=== PATIENT | female | born 1960 | race Caucasian/White ===

== ENCOUNTER 2017-04-09 09:18 | Emergency (ER) | payer OTHER, BC ==
[~2017-04-09] VITALS: Ht 154.9 cm; Wt 58.2 kg
[~2017-04-09 09:18] MED LIST: CALC500C70 PO; CHOL100010 PO
[2017-04-09 09:23] VITALS: TEMP 36.8; Ht 154.9 cm; Wt 58.2 kg
[2017-04-09] MEDS ORDERED: CHOL1000 PO (09:59)
--- NOTE | 2017-04-09 10:22 | DIAGNOSTIC IMAGING REPORT ---
L-SPINE MIN 4 VIEWS ROUTINE CLINICAL HISTORY: Back pain COMPARISON STUDY: 09/20/2007 FINDINGS: There are postsurgical changes of an L4-5 discectomy and posterior pedicle screw fixation. There are no acute fractures or subluxations. There are minor degenerative changes present. No destructive lesions are evident. IMPRESSION: Postsurgical changes at the L4-5 level. No acute fractures subluxations or destructive lesions are visualized. Electronically signed by: Yeison Pérez M.D. 04/09/2017 10:21 AM Dictated Date/Time: 04/09/2017 10:20 AM
[2017-04-09 10:41] VITALS: BP 145/70; PULSE 74; O2SAT 98
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
== END 2017-04-09 10:42 | disposition home or self-care (01) ==
LOC: C.EDB 09:20
DX: M54.5 Low back pain (principal); V43.52XA Car driver injured in collision with other type car in traffic accident, initial encounter; M48.06 Spinal stenosis, lumbar region; Z98.890 Other specified postprocedural states; Z88.8 Allergy status to other drugs, medicaments and biological substances; Z91.09 Other allergy status, other than to drugs and biological substances

== ENCOUNTER → 2017-07-17 | Outpatient (CLI) | payer BC ==
[~2017-07-17] MED LIST changes: +CHOL1000 PO; -CHOL100010 PO
--- NOTE | 2017-07-17 14:31 | MAMMOGRAPHY REPORT ---
BILATERAL DIGITAL SCREENING MAMMOGRAM TOMOSYNTHESIS WITH CAD: 07/17/2017 CLINICAL HISTORY: Routine screening. TECHNIQUE: Breast tomosynthesis in addition to standard 2D mammography was performed. Current study was also evaluated with a Computer Aided Detection (CAD) system. COMPARISON: Comparison is made to exams dated: 07/15/2016 mammogram, 07/10/2015 mammogram, 07/07/2014 ma mmogram, 07/06/2013 mammogram, 07/05/2012 mammogram, and 07/01/2011 mammogram - [facility] BREAST COMPOSITION: The tissue of both breasts is heterogeneously dense, which may obscure small mas ses. FINDINGS: No suspicious masses, calcifications, or areas of architectural distortion are noted in ei ther breast. There has been no significant interval change compared to prior exams. IMPRESSION: ACR BI-RADS CATEGORY 1: NEGATIVE There is no mammographic evidence of malignancy. A 1 year screening mammogram is recommended. The pa tient will receive written notification of the results. Approximately 10% of breast cancers are not detected with mammography. A negative mammographic report should not delay biopsy if a clinically suggestive mass is present. Judy Meyers M.D. /:07/17/2017 07:38:06 District Manager Major Accounts Sales: Dee LUNA(Maryana)([place]), [facility] letter sent: Normal 1/2 BI-RADS Code: ACR BI-RADS Category 1: Negative
== END | disposition home or self-care (01) ==
LOC: C.MAMM 07:15
PROVIDERS: ATTEND Obstetrics & Gynecology
DX: Z12.31 Encounter for screening mammogram for malignant neoplasm of breast (principal)

== ENCOUNTER → 2017-07-27 | Outpatient (CLI) | payer BC | END | disposition home or self-care (01) | LOC: C.LAB1850 10:38 | PROVIDERS: ATTEND Internal Medicine Rheumatology | DX: D55.9 Anemia due to enzyme disorder, unspecified (principal); M85.80 Other specified disorders of bone density and structure, unspecified site; M54.5 Low back pain ==

== ENCOUNTER → 2018-02-22 | Outpatient (CLI) | payer OTHER | END | disposition home or self-care (01) | LOC: C.MAMM 08:14 | PROVIDERS: ATTEND Internal Medicine Rheumatology | DX: M54.5 Low back pain (principal); M85.80 Other specified disorders of bone density and structure, unspecified site; E55.9 Vitamin D deficiency, unspecified ==

== ENCOUNTER 2019-02-21 06:01 | Inpatient (IN) ==
--- NOTE | 2019-01-31 15:45 | PAT Medication Instructions ---
Medication Instructions Date of Service January 31, 2019 Home Medications calcium carbonate [Calcium 500] 1 tab PO BID cholecalciferol (vitamin D3) 5,000 unit PO QAM DO NOT take the morning of surgery calcium carbonate [Calcium 500] 1 tab PO BID cholecalciferol (vitamin D3) 5,000 unit PO QAM Other Notes If you have any questions please call us at [phone] or [phone] or [phone] or [phone]
--- NOTE | 2019-02-01 14:07 | Anesthesiology Consultation ---
Date of Service February 01, 2019 Assessment & Plan (1) Encounter for pre-operative examination: Chart Review Chart Review: Acceptable Risk for Surgery and Patient seen in Pre Admission Testing Teaching & Discussion Pre-Anesthesia Teaching/Discussion Notes: Instructed NPO after midnight before surgery,except medications with 15 cc of water. Medication instructions provided according to the PAT guidelines. History Surgery Operation Date: 02/21/19 10:05 Proposed Procedures p L3-L4 Decompression and Fusion, Removal of Hardware L4-L5 - Evin Kennedy DO Height/Weight Height: 5 ft 2 in Weight: 66.2 kg Allergies Allergy/AdvReac Type Severity Reaction Status Date / Time butalbital Allergy Mild RASH Verified 01/27/19 13:06 nickel AdvReac Mild SKIN Verified 01/27/19 13:06 IRRITATION Additional Notes: Surgeon made aware of nickel reaction* Medications Home Medications Medication Instructions Recorded Confirmed Last Taken calcium carbonate [Calcium 500] 1 tab PO BID 01/27/19 01/27/19 Unknown cholecalciferol (vitamin D3) 5,000 unit PO QAM 01/27/19 01/27/19 Unknown [Vitamin D3] Past Medical History Medical History IBS (irritable bowel syndrome) Migraine Mitral and aortic regurgitation MILD Spinal stenosis Past Family History Family History Grandmother (Maternal) Family history of diabetes mellitus Mother Family history of diabetes mellitus Daughter Family hx of colon cancer Past Surgical History Surgical History Fusion of spine LUMBAR L4-5 History of colonoscopy History of esophagogastroduodenoscopy (EGD) History of hysterectomy History of tooth extraction Past Anesthesia History No Hx of Anesthesia Complications and No Family Hx of Anesthesia Complications History of PONV No Motion Sickness Screening History of Motion Sickness: Yes Social History Smoking Status: Never smoker Do You Dip or Chew Tobacco: No Hx Alcohol Use: No Hx Substance Use: No substance use type: does not use Exercise / Class Metabolic Activity II 4-5 Yardwork/Stairs/Walk up hill Review of Systems LBP with right hip/RLE neuropathy. Patient denies chest pain, shortness of breath, dyspnea on exertion, cough, wheezing, palpitations. Physical Exam Vital Signs VITALS BP 143/93 P 79 TEMP 98.1 SP02 96%RA RESP 20 PHYSICAL Full neck and c-spine range of motion. Full TMJ range of motion. TMD 3 finger breaths Mallampati Score 1 Dentition: intact, crown on left side Lungs: clear throughout to auscultation Cardiac: regular rate and rhythm, no murmurs noted Spine: normal Carotid arteries: negative bruit Extremities: no edema Testing Electrocardiogram Date: 02/01/19 NSR at 68bpm. Rightward axis. Chest X-Ray Date: 02/01/19 Findings: + NAD Atherosclerosis of the aortic arch. Echocardiogram Date: 08/22/15 EF 60-65%. No RWMA. Mild AR/MR Laboratory Results 02/01/19 14:13 02/01/19 14:13 Blood Type B Positive 02/01/19 14:13 Antibody Screen NEGATIVE 02/01/19 14:13 PT 10.3 Seconds (9.0-12.0) 02/01/19 14:13 INR 1.0 (0.9-1.1) 02/01/19 14:13 APTT 28.2 Seconds (21.0-31.0) 02/01/19 14:13 Urine Color Yellow 02/01/19 14:13 Urine Appearance Clear (Clear) 02/01/19 14:13 Urine pH 7.0 (4.5-7.5) 02/01/19 14:13 Ur Specific [place] 1.014 (1.000-1.030) 02/01/19 14:13 Urine Protein Negative (Negative) 02/01/19 14:13 Urine Glucose (UA) Negative (Negative) 02/01/19 14:13 Urine Ketones Negative (Negative) 02/01/19 14:13 Urine Nitrite Negative (Negative) 02/01/19 14:13 Ur Leukocyte Esterase Trace (Negative) H 02/01/19 14:13 Urine WBC (Auto) 1-5 /hpf (0-5) 02/01/19 14:13 Urine RBC (Auto) 0-4 /hpf (0-4) 02/01/19 14:13 U Hyaline Cast (Auto) 0 /lpf (0-5) 02/01/19 14:13 U Epithel Cells (Auto) 10-20 /lpf (0-5) H 02/01/19 14:13 Urine Bacteria (Auto) Negative (Negative) 02/01/19 14:13
--- NOTE | 2019-02-01 14:44 | XRay Report ---
XR chest Pre-admission PA/Lat CLINICAL HISTORY: 58 years-old Female presenting with preoperative assessment. TECHNIQUE: PA and lateral views of the chest were obtained. COMPARISON: 08/08/2015. FINDINGS: Atherosclerosis of the aortic arch. Cardiac silhouette top normal in size. Lungs and pleural spaces c lear. Partially visualized lumbar fusion hardware. Upper abdomen normal. IMPRESSION: 1. No acute cardiopulmonary disease. Electronically signed by: Desmond Pedersen M.D. 02/01/2019 2:42 PM
[2019-02-01 15:07] LABS: Basophils # (auto) 0.02 K/uL (0-0.2); Basophils % (auto) 0.3 %; Eosinophils # (auto) 0.19 K/uL (0-0.5); Eosinophils % (auto) 3.2 %; Hematocrit (blood only) 41.7 % (37-47); Hemoglobin 14.1 g/dL (12.0-16.0); Immature Granulocytes # (auto) 0.01 K/uL (0.00-0.02); Immature Granulocytes % (auto) 0.2 %; Lymphocytes # (auto) 1.62 K/uL (1.2-3.4); Lymphocytes % (auto) 27.1 %; Mean Corpuscular Hgb Conc 33.8 g/dL (32-36); Mean Corpuscular Volume 84.9 fL (80-100); Mean Platelet Volume 9.8 fL (7.4-10.4); Monocytes # (auto) 0.47 K/uL (0.11-0.59); Monocytes % (auto) 7.9 %; Neutrophils # (auto) 3.67 K/uL (1.4-6.5); Neutrophils % (auto) 61.3 %; Platelet Count 226 K/uL (130-400); RDW Standard Deviation 40.6 fL (36.4-46.3); Red Blood Count 4.91 M/uL (4.2-5.4); White Blood Count 5.98 K/uL (4.8-10.8)
[2019-02-01 15:11] LABS: Appearance Urine Clear (Clear); Bacteria Urine Automated Negative (Negative); Bilirubin Urine Negative (Negative); Blood Urine Negative (Negative); Cast Urine Automated 0 /lpf (0-5); Color Urine Yellow; Glucose Urine UA Negative (Negative); Ketones Urine Negative (Negative); Leukocyte Esterase Urine Trace (Negative); Nitrite Urine Negative (Negative); Protein Urine Negative (Negative); RBC Urine Automated 0-4 /hpf (0-4); Specific Gravity Urine 1.014 (1.000-1.030); Urobilinogen Urine Negative (Negative)
[2019-02-01 15:14] LABS: BUN Creatinine Ratio 30.7 (10-20); Calcium 9.1 mg/dl (8.5-10.1); Creatinine Clr Calc Pharmacy 97.2 ml/min; Est GFR (African American) 119.3; Est GFR (Non-African American) 102.9
[2019-02-01 15:18] LABS: Partial Thromboplastin Time 28.2 Seconds (21.0-31.0); Prothrombin Time 10.3 Seconds (9.0-12.0)
[~2019-02-21 06:01] MED LIST changes: +ACETAMINOPHEN 500 MG TAB PO SCH; -CALC500C70 PO; +CEFAZOLIN 1000MG 1,000 MG/7.5 ML SYR IV SCH; -CHOL1000 PO; +CeleBREX 200 MG CAP PO SCH; +GABAPENTIN 300 MG x 2 PO SCH; +LR 15ML/HR IV SCH; +dexAMETHasone 4 MG TAB PO SCH
[2019-02-21] MEDS ORDERED: ROCURONIUM BROMIDE 10 MG/ML 5 ML VIAL ONE (06:57)
[2019-02-21] MEDS ORDERED: fentaNYL citrate 100 MCG/2 ML VIAL ONE ×3 (06:57→08:04)
[2019-02-21] MEDS ORDERED: MIDAZOLAM HCL 1 MG/ML 2ML VIAL ONE (06:57)
[2019-02-21] MEDS ORDERED: PROPOFOL IV EMULSION 10 MG/ML 20 ML VIAL IV ONE (06:57)
[2019-02-21] MEDS ORDERED: BACITRACIN INJ 50,000 UNIT VIAL ONE (07:16)
[2019-02-21] MEDS ORDERED: BUPIVACAINE/EPINEPHRINE 0.5% MPF 1:200,000 30 ML VIAL ONE (07:16)
--- NOTE | 2019-02-21 07:30 | History & Physical Bridge Note ---
Date of Service February 21, 2019 History & Physical Bridge Note I have examined the patient, reviewed the History & Physical and in the interval since the performance of the History & Physical I have noted the following changes of clinical significance: no changes noted
--- NOTE | 2019-02-21 07:31 | History & Physical Report ---
Date of Service February 21, 2019 Assessment & Plan (1) Neurogenic claudication due to lumbar spinal stenosis: L3-4 decompression fusion removal of hardware L4-5 Present on Admission?: Yes History of Present Illness Chief Complaint: Back and leg pain Primary Care Provider: ANIRUDH Nevarez This is a 58-year-old female well-known to me that presents with chronic persistent back pain after failing extensive course of nonoperative care she is here for surgical intervention. Allergies Allergy/AdvReac Type Severity Reaction Status Date / Time butalbital Allergy Mild RASH Verified 02/21/19 06:50 nickel AdvReac Mild SKIN Verified 02/21/19 06:50 IRRITATION Home Medications Home Medications Medication Instructions Recorded Confirmed Type calcium carbonate [Calcium 500] 1 tab PO BID 01/27/19 02/21/19 History cholecalciferol (vitamin D3) 5,000 unit PO QAM 01/27/19 02/21/19 History [Vitamin D3] acetaminophen [Tylenol Extra 1,000 mg PO Q6H PRN 02/21/19 02/21/19 History Strength] ibuprofen [Advil] 600 mg PO QID PRN 02/21/19 02/21/19 History Past Med/Surg History Family History Grandmother (Maternal) Family history of diabetes mellitus Mother Family history of diabetes mellitus Daughter Family hx of colon cancer Social History Preferred Language: Hungarian Communication Ability: Effective 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 Beliefs That Will Affect Care: None Current Living Situation: Spouse Other Information That Helps Us Care for You: No Feels Safe at Home: Yes Safety Concerns: Feels Safe At This Time Smoking Status: Never smoker Hx Alcohol Use: No Hx Substance Use: No Physical Exam Vital Signs (Past 24 Hours): Last Vital Signs Temp 36.8 C 02/21/19 06:59 Pulse 70 02/21/19 06:59 Resp 20 02/21/19 06:59 BP 144/81 H 02/21/19 06:59 Pulse Ox 97 02/21/19 06:59 Results & Data Medications Administered Acetaminophen (Tylenol) 1,000 mg PO PREOP CHARLIE Stop: 02/21/19 18:00 Last Admin: 02/21/19 06:55 Dose: 1,000 mg Documented by: [id number] Celecoxib (Celebrex) 200 mg PO PREOP CHARLIE Stop: 02/21/19 18:00 Last Admin: 02/21/19 06:55 Dose: 200 mg Documented by: [id number] Gabapentin (Neurontin) 600 mg PO PREOP CHARLIE Stop: 02/21/19 18:00 Last Admin: 02/21/19 06:55 Dose: 600 mg Documented by: [id number] Lactated Ringer's (Lr) 1,000 mls @ 15 mls/hr IV .Q24H CHARLIE Stop: 02/22/19 05:59 Last Admin: 02/21/19 06:54 Dose: 15 mls/hr Documented by: [id number]
[2019-02-21] MEDS ORDERED: HYDROmorphone INJ 2 MG/ML SYR/VIAL IV PRN (07:51)
[2019-02-21] MEDS ORDERED: ATROPINE SULFATE 0.1 MG/ML 10ML SYR IV PRN (07:51)
[2019-02-21] MEDS ORDERED: DEXAMETHASONE SOD INJ 4 MG/ML VIAL IV PRN (07:51)
[2019-02-21] MEDS ORDERED: ePHEDrine sulfate 50 MG/ML AMP IV PRN (07:51)
[2019-02-21] MEDS ORDERED: KETOROLAC 30 MG/ML VIAL IV PRN (07:51)
[2019-02-21] MEDS ORDERED: PROMETHAZINE HCL 12.5 MG in SODIUM CHLORIDE 0.9% 50 ML IV PRN ×2 (07:51→10:53)
[2019-02-21] MEDS ORDERED: ONDANSETRON INJ 2 MG/ML 2 ML VIAL IV PRN ×2 (07:51→10:53)
[2019-02-21] MEDS ORDERED: METOCLOPRAMIDE HCL INJ 5 MG/ML 2 ML VIAL IV PRN ×2 (07:51→10:53)
[2019-02-21] MEDS ORDERED: DEXAMETHASONE SOD INJ 4 MG/ML VIAL ONE (08:18)
[2019-02-21] MEDS ORDERED: ONDANSETRON INJ 2 MG/ML 2 ML VIAL ONE (08:18)
[2019-02-21] MEDS ORDERED: FLOSEAL HEMOSTATIC MATRIX 10ML TOP ONE (08:52)
[2019-02-21] MEDS ORDERED: GLYCOPYRROLATE 0.2 MG/ML VIAL ONE (08:57)
[2019-02-21] MEDS ORDERED: NEOSTIGMINE METHYLSULFATE 1 MG/ML 10ML VIAL ONE (08:57)
--- NOTE | 2019-02-21 09:06 | Operative Report ---
Post Operative Report Pre & Post Diagnosis Operation Date: 02/21/19 07:45 Pre-Op Diagnosis: Neurogenic claudication due to lumbar spinal stenosis Post-Op Diagnosis: Neurogenic claudication due to lumbar spinal stenosis Procedure Operation Date: 02/21/19 07:45 Actual Procedures #1 removal of posterior instrumentation L4-5. #2 expiration of fusion L4-5 per #3 lumbar decompression medial facetectomies foraminotomies L2-3 L3-4. #4 posterior spinal fusion L3-4. #5 placement posterior his mentation L3-4 per #6 interbody fusion L3-4. #7 placement of titanium cage 10 x 22 mm L3-4. #8 placement of local autograft in the posterior lateral gutters. #9 placement infuse collagen sponge, mass graft in the posterior gutters and ostial amp and interbody space. Surgeon Evin Kennedy, Reduction Plant Supervisor Joy Bonds Estimated Blood Loss 10 Findings Consistent with Post-Op Diagnosis Specimens None Description of Procedure Patient was met with preoperatively case discussed all questions addressed. After informed consent obtained patient was taken to the operative suite underwent intubation and placed in the prone position on the Martir table on top of the Rey frame. All bony prominences well-padded eyes inspected to ensure no external pressure placed upon up at this point the lumbar spine was prepped and draped in the normal sterile fashion. Sharp dissection with the assistance of Bovie cautery was performed and exposing the lamina and transverse processes of L3 and the instrumentation at L4-5 bilaterally. And then proceeded move the hardware bilaterally explore the fusion mass noting to be intact. Then performed a complete laminectomy of 3 and partial laminectomy of L2 including medial facetectomies and foraminotomies addressing severe stenosis. Pedicle screws were then placed in all 3 and L4 bilaterally with the assistance of fluoroscopy and the purposes praveen placed by way of a transforaminal approach on the right complete discectomy of L3-4 was performed in plate coated to subcortical bleeding bone and a 10 x 22 mm titanium cage filled with ostium bone graft tapped in position. The rods and then locked into position bilaterally. The transverse processes of L3 and 4 bur to subcortical bleeding bone. Infuse collagen sponge mass graft local autograft placed in the posterior lateral gutters. 15 round MACK drain inserted. Incision was then closed with 1 Vicryl in the fascia 2-0 Vicryl subtenons seen for Monocryl for final skin closure. Steri-Strip sterile dressings placed per patient will continue PACU stable condition please note Joy Bonds present throughout the entire procedure involved in patient positioning complex portions of the surgery and final skin closure. I attest to the content of the Intraoperative Record and any orders documented therein. Any exceptions are noted below.
--- NOTE | 2019-02-21 09:34 | Fluoroscopy Report ---
FL lumbar spine 2-3V HISTORY: 58 years-old Female L3-L4 DECOMPRESSION AND FUSION / L4-L5 REMOVAL OF HARDWARE chronic low back pain COMPARISON: Lumbar spine radiographs 04/09/2017 TECHNIQUE: 2 spot fluoroscopic images of the lumbar spine were obtained utilizing 15.0 seconds of flu oroscopy time FINDINGS: Posterior interbody praveen and screw fusion hardware with discectomy changes noted at what appears to be the L3-L4 level. Remote discectomy changes at L4-L5. Removal of the L4-L5 hardware. Alignment appear s satisfactory. No acute fracture. IMPRESSION: Fluoroscopic assistance as above. Please see operative report for further details. The above report was generated using voice recognition software. It may contain grammatical, syntax o r spelling errors. Electronically signed by: Fredrick Vogel M.D. 02/21/2019 9:32 AM
[2019-02-21] MEDS: fentaNYL citrate 100 MCG/2 ML VIAL IV PRN ×2 (09:37→09:42)
--- NOTE | 2019-02-21 10:03 | Anesthesiology Progress Note ---
Date of Service February 21, 2019 Anesthesia Post Procedure Vital Signs Vital Signs: Temp Pulse Pulse Resp BP Pulse Ox 02/21/19 09:50 53 L 14 106/65 100 02/21/19 09:40 54 L 12 106/69 99 02/21/19 09:30 72 17 115/68 98 02/21/19 09:23 36.0 C L 74 20 118/72 100 02/21/19 06:59 36.8 C 70 20 144/81 H 97 Pain Intensity Lower Medial Back: Pain Intensity: 9 Notes Mental Status: alert / awake / arousable and participated in evaluation Patient Amnestic to Procedure: Yes Nausea / Vomiting: adequately controlled Pain: adequately controlled Airway Patency, RR, SpO2: stable & adequate BP & HR: stable & adequate Hydration State: stable & adequate Anesthetic Complications: no major complications apparent
[2019-02-21] MEDS ORDERED: LORazepam 0.5 MG/1 ML VIAL IV PRN (10:53)
[2019-02-21] MEDS ORDERED: ACETAMINOPHEN 500 MG TAB PO PRN ×2 (10:53)
[2019-02-21] MEDS ORDERED: LORazepam 0.5 MG TAB PO PRN (10:53)
[2019-02-21] MEDS ORDERED: HYDROmorphone INJ 0.5 MG/0.5 ML SYR IV PRN (10:53)
[2019-02-21] MEDS ORDERED: SOD PHOSPHATE/SOD BIPHOSPHATE ENEMA 132 ML BTL PR PRN (10:53)
[2019-02-21] MEDS ORDERED: MAGNESIUM HYDROXIDE SUSP 30 ML UDC PO PRN (10:53)
[2019-02-21] MEDS ORDERED: DO NOT ADMINISTER PNEUMOCOCCAL VACCINE PRN (10:53)
[2019-02-21] MEDS ORDERED: ONDANSETRON 4 MG TAB PO PRN (10:53)
[2019-02-21] MEDS ORDERED: DO NOT ADMINISTER FLU VACCINE PRN (10:53)
[2019-02-21] MEDS ORDERED: FAMOTIDINE 20 MG TAB PO PRN (10:53)
[2019-02-21] MEDS ORDERED: ALUMINUM/MAGNESIUM SUSP 30 ML UDC PO PRN (10:53)
[2019-02-21] MEDS ORDERED: ACETAMINOPHEN 1,000 MG/100 ML VIAL IV PRN (10:53)
[2019-02-21] MEDS ORDERED: BISACODYL 10 MG SUPP PR PRN (10:53)
[2019-02-21] MEDS ORDERED: TRAMADOL HCL 50 MG TABLET PO PRN (10:53)
--- NOTE | 2019-02-21 11:07 | Anesthesiology Progress Note ---
Date of Service February 21, 2019 Anesthesia Post Procedure Vital Signs Vital Signs: Temp Pulse Pulse Pulse Resp BP Pulse Ox 02/21/19 10:51 64 18 135/82 100 02/21/19 10:29 36.2 C L 02/21/19 10:27 34.7 C L 66 14 135/85 100 02/21/19 10:10 67 12 115/67 97 02/21/19 10:00 36.2 C L 65 12 112/72 100 02/21/19 09:50 53 L 14 106/65 100 02/21/19 09:40 54 L 12 106/69 99 02/21/19 09:30 72 17 115/68 98 02/21/19 09:23 36.0 C L 74 20 118/72 100 02/21/19 06:59 36.8 C 70 20 144/81 H 97 Pain Intensity Lower Medial Back: Pain Intensity: 9 Notes Mental Status: alert / awake / arousable and participated in evaluation Patient Amnestic to Procedure: Yes Nausea / Vomiting: adequately controlled Pain: adequately controlled Airway Patency, RR, SpO2: stable & adequate BP & HR: stable & adequate Hydration State: stable & adequate Anesthetic Complications: no major complications apparent
[2019-02-21] MEDS: LACTATED RINGER'S 1,000 ML IV SCH ×3 (13:03→23:53)
[2019-02-21] MEDS: KETOROLAC TROMETHAMINE 15 MG/ML VIAL IV SCH ×2 (13:35→21:43)
[2019-02-21] MEDS: CEFAZOLIN 1000MG 1,000 MG/7.5 ML SYR IV SCH ×2 (14:23→22:46)
[2019-02-21] MEDS: DOCUSATE SODIUM/SENNA 50/8.6MG TAB PO SCH (21:43)
[2019-02-21] MEDS: CALCIUM CARBONATE 1250MG TAB PO SCH (21:43)
[2019-02-22] MEDS: KETOROLAC TROMETHAMINE 15 MG/ML VIAL IV SCH ×2 (01:29→08:47)
[2019-02-22 05:53] LABS: Basophils # (auto) 0.01 K/uL (0-0.2); Basophils % (auto) 0.1 %; Eosinophils # (auto) 0.02 K/uL (0-0.5); Eosinophils % (auto) 0.2 %; Hematocrit (blood only) 33.2 % (37-47); Immature Granulocytes # (auto) 0.03 K/uL (0.00-0.02); Immature Granulocytes % (auto) 0.3 %; Lymphocytes # (auto) 1.36 K/uL (1.2-3.4); Lymphocytes % (auto) 12.5 %; Mean Corpuscular Hgb Conc 33.1 g/dL (32-36); Mean Corpuscular Volume 84.3 fL (80-100); Mean Platelet Volume 9.7 fL (7.4-10.4); Monocytes # (auto) 0.99 K/uL (0.11-0.59); Monocytes % (auto) 9.1 %; Neutrophils # (auto) 8.46 K/uL (1.4-6.5); Neutrophils % (auto) 77.8 %; Platelet Count 166 K/uL (130-400); RDW Coefficient of Variation 12.8 % (11.5-14.5); RDW Standard Deviation 39.1 fL (36.4-46.3); Red Blood Count 3.94 M/uL (4.2-5.4); White Blood Count 10.87 K/uL (4.8-10.8)
[2019-02-22] MEDS: OXYCODONE HCL IR 5 MG TAB (IMMEDIATE RELEASE) PO PRN ×3 (06:03→20:56)
[2019-02-22] MEDS: POLYETHYLENE (MIRALAX) 17 GM PACK PO SCH ×3 (06:03→18:10)
[2019-02-22 06:31] LABS: BUN Creatinine Ratio 26.8 (10-20); Calcium 8.7 mg/dl (8.5-10.1); Creatinine Clr Calc Pharmacy 99.5 ml/min; Est GFR (African American) 120.7; Est GFR (Non-African American) 104.1
--- NOTE | 2019-02-22 08:07 | Anesthesiology Progress Note ---
Date of Service February 22, 2019 Anesthesia Post Procedure Vital Signs Vital Signs: Temp Pulse Pulse Pulse Resp BP Pulse Ox 02/22/19 07:53 36.9 C 55 L 16 98/63 L 96 02/22/19 03:37 36.9 C 69 14 103/65 97 02/21/19 23:47 37.0 C 68 14 110/63 96 02/21/19 20:01 36.9 C 64 16 111/70 96 02/21/19 15:22 36.2 C L 66 16 107/71 98 02/21/19 13:21 79 18 128/78 99 02/21/19 12:22 73 18 112/67 100 02/21/19 11:23 55 L 16 117/73 100 02/21/19 10:51 64 18 135/82 100 02/21/19 10:29 36.2 C L 02/21/19 10:27 34.7 C L 66 14 135/85 100 02/21/19 10:10 67 12 115/67 97 02/21/19 10:00 36.2 C L 65 12 112/72 100 02/21/19 09:50 53 L 14 106/65 100 02/21/19 09:40 54 L 12 106/69 99 02/21/19 09:30 72 17 115/68 98 02/21/19 09:23 36.0 C L 74 20 118/72 100 Pain Intensity Lower Medial Back: Pain Intensity: 2 Notes Mental Status: alert / awake / arousable and participated in evaluation Patient Amnestic to Procedure: Yes Nausea / Vomiting: adequately controlled Pain: adequately controlled Airway Patency, RR, SpO2: stable & adequate BP & HR: stable & adequate Hydration State: stable & adequate Anesthetic Complications: no major complications apparent and Pt Satisfied with anesthetic care
[2019-02-22] MEDS: CHOLECALCIFEROL 1,000 UNITS TAB PO SCH (08:48)
[2019-02-22] MEDS: CALCIUM CARBONATE 1250MG TAB PO SCH ×2 (08:48→20:56)
--- NOTE | 2019-02-22 10:57 | Orthopedic Progress Note ---
Date of Service February 22, 2019 Assessment & Plan (1) Lumbar stenosis with neurogenic claudication: At this time we will continue physical therapy advance her bowel regiment monitor her MACK output anticipate home in the next few days. Present on Admission?: Yes Subjective Patient's back pain is controlled leg symptoms markedly improved. Physical Exam Vital Signs (Past 24 Hours): Last Vital Signs Temp 36.9 C 02/22/19 07:53 Pulse 55 L 02/22/19 07:53 Resp 16 02/22/19 07:53 BP 98/63 L 02/22/19 07:53 Pulse Ox 96 02/22/19 07:53 Physical Exam: On exam she is sitting the chair at the bedside. She appears quite comfortable. Is good strength testing.
[2019-02-22] MEDS: DOCUSATE SODIUM/SENNA 50/8.6MG TAB PO SCH (20:56)
[2019-02-23] MEDS: POLYETHYLENE (MIRALAX) 17 GM PACK PO SCH ×3 (00:06→13:52)
[2019-02-23] MEDS: OXYCODONE HCL IR 5 MG TAB (IMMEDIATE RELEASE) PO PRN (06:39)
[2019-02-23] MEDS: CALCIUM CARBONATE 1250MG TAB PO SCH (07:54)
[2019-02-23] MEDS: CHOLECALCIFEROL 1,000 UNITS TAB PO SCH (07:54)
--- NOTE | 2019-02-23 13:28 | Discharge Summary ---
Date of Service February 23, 2019 Admission HPI Per Admitting Provider This is a 58-year-old female well-known to me that presents with chronic persistent back pain after failing extensive course of nonoperative care she is here for surgical intervention. Principal Diagnosis Lumbar spinal stenosis with neurogenic claudication Discharge Data Allergies Allergy/AdvReac Type Severity Reaction Status Date / Time butalbital Allergy Mild RASH Verified 02/21/19 06:50 nickel AdvReac Mild SKIN Verified 02/21/19 06:50 IRRITATION Consultations 02/21/19 10:53 Consult Case Management - Discharge Planning Routine Procedures Performed Operation Date: 02/21/19 07:45 Actual Procedures p L3-L4 Decompression and Fusion, Interbody Fusion L3-L4. L4-L5 Removal of Hardware, Application of BMP and Osteoamp(Not Applicable) - Evin Kennedy DO Ordered Studies 02/21/19 07:45 FL fluoroscopy <1hr Routine FL lumbar spine 2-3V Routine Hospital Course (1) Neurogenic claudication due to lumbar spinal stenosis: Patient underwent lumbar decompression fusion tolerated this well was taken to the orthopedic floor postoperative. Postop day and when she was up and ambulating nicely. Leg pain improved. Progressed to postop day #2. MACK drain decreasing appropriately. Subsequently discharged home. Discharge orders and instructions found in the chart for further review. Total Time Total Time Spent Total Time Spent (In Minutes): Not applicable Discharge Plan Discharge Items Patient Disposition: Home - Home Health Services Reason For Visit: Spinal Stenosis, Lumbar Region without Neurogenic Discharge Diagnosis: Lumbar spinal stenosis with neurogenic claudication Discharge Goals: Decrease discomfort Activity: Per 'Additional Instructions' section Non-emergency contact: Primary Care Provider Call non-emergency contact if: you have any medication questions Follow-up/Referrals: Mariah Maddox CRNP [Primary Care Provider] - Diet: Regular Addtl Provider Instructions: ACTIVITY RECOMMENDATIONS: SELF CARE INSTRUCTIONS AFTER THORACIC/LUMBAR FUSIONS 1. You may walk to your tolerance. It is good exercise for your legs and back. Expect some back and intermittent leg aches and pains. 2. You may perform "counter-top" level activities (make a sandwich, david with a project, etc.). 3. No bending or lifting of more than 10 pounds or back twisting of any nature (roll like a log when turning in bed). 4. You may ride in a car for 20-30 minutes at a time. No driving until after your first visit with your doctor. 5. Frequent changes of position and restricting sitting to 30 minutes at a time will help limit the amount of back spasms and stiffness you may experience. 6. You may discontinue the use of ambulatory aids (cane, crutches, etc.) once your strength and confidence allow. 7. 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 Do not take a tub bath, sit in a hot tub or go into a swimming pool until after your first recheck in the office. SPECIAL CARE INSTRUCTIONS: VERY IMPORTANT TO READ AND REVIEW A. Your surgical incision has been closed with a cosmetic suture under the skin that will dissolve in about 6 weeks. In 14 days, you can use a pair of clean scissors and cut the suture that is left outside of the skin at the ends of your incision. 1. The small skin tapes can be removed 7 days after surgery if they have not fallen off by that point. 2. You may keep the wound open to air as much as possible to promote healing after post-op day number 5 unless told otherwise by your doctor. 3. If you think the wound looks like it is becoming infected (redness or worsening drainage) and/or you are experiencing fever, chill or worsening back pain and muscle spasms, contact the office so that we may evaluate you as soon as possible. B. Complications are uncommon, but please contact us if you have any signs or symptoms of: 1. wound infection (fever higher than 102.5 degrees F, redness, separation of wound, drainage, or increasing pain from the incision) 2. blood clots in legs (pain, swelling, redness and warmth in legs) 3. urinary tract infection (fever higher than 102.5 degrees F, burning upon urination or increased frequency of urination) 4. nerve problems (inability to walk on your toes or heels, numbness, loss of bowel or bladder control) 5. any other symptoms that concern you C. Please call the office at if you have any concerns or questions about your operation or recovery. D. No smoking! Smoking drastically decreases the chance of a solid fusion. E. Do not take any anti-inflammatory medications (Indocin, Advil, Motrin, Aspirin, Naprosyn, etc.) as these may inhibit the chance of a solid fusion. Tylenol is okay to take for pain. MANAGING PAIN AFTER SPINAL SURGERY 1. Narcotic medication is intended for short-term use and will be provided for surgical pain. Surgical pain usually lasts for a period of 4-6 weeks. Narcotic medication includes Percocet, Vicodin, Darvocet, Tylenol #3 or Lortab. 2. Longer-term pain is more appropriately treated with non-narcotic medication such as Tylenol ES. 3. Muscle spasm is not appropriately treated with narcotics. Muscle relaxers such as Soma, Flexeril or Skelaxin can be used along with Tylenol ES. 4. Remember that we all live with some "aches and pains". This is not unusual or uncommon after an injury or as we get older. a. Back pain is expected and may include muscle spasms for 4 to 6 weeks after surgery. The pain should gradually improve. If the pain worsens for no apparent reason, please contact the office. b. Intermittent leg pain may also be experienced and should not be concerned about unless it worsens for no apparent reason. If so, please contact the office. 5. We will provide appropriate medication within the normal guidelines of their prescribed use. We will also be very cautious and aware of potential abuse and extended duration of patients' medication needs. a. Pain medications are for your comfort and to assist with sleep and rest so that the tissue can heal. They are not provided in order to return to normal activity and should not be used through the day. To do so or worsening pain at night can result from ongoing tissue damage and development of tolerance to the prescribed medicine. 6. Please allow 2-3 days to process refills. Prescriptions will not be mailed but must be picked up at the office. FOLLOW UP VISIT: Keep your scheduled follow-up appointment. Any questions, please call the office at . Prescriptions: New tramadol 50 mg Tablet 50 mg PO Q4H PRN (Reason: Pain, Moderate) Qty: 30 RF: 0 oxycodone 5 mg Tablet 5 mg PO Q4H PRN (Reason: Pain, Severe) Qty: 30 RF: 0 Continued calcium carbonate [Calcium 500] 500 mg calcium (1,250 mg) Tablet,Chewable 1 tab PO BID RF: 0 cholecalciferol (vitamin D3) [Vitamin D3] 5,000 unit Tablet 5,000 unit PO QAM RF: 0 acetaminophen [Tylenol Extra Strength] 500 mg Tablet 1,000 mg PO Q6H PRN (Reason: Pain) RF: 0 ibuprofen [Advil] 200 mg Tablet 600 mg PO QID PRN (Reason: pain) RF: 0 Stand-Alone Forms: [facility] [place] Discharge Orders: Discharge Order (Routine); Ordered 02/23/19 Ordered By: Evin Kennedy Admission Data Admit Date/Time: 02/21/19 09:13 Attending Provider: Evin Kennedy Admit Provider: Evin Kennedy Primary Care Provider: Mariah Maddox Service: Surgical Services
== END 2019-02-23 17:21 | disposition home or self-care (01) | DRG 455 ==
LOC: ASU 06:01 → 3E 09:13